=== PATIENT | female | born 1975 | race African-American/Black ===

== ENCOUNTER 2017-09-16 10:05 | Emergency (ER) | payer BC ==
[~2017-09-16] VITALS: Ht 162.6 cm; Wt 97.5 kg
[2017-09-16 10:10] VITALS: BP 162/94; Ht 162.6 cm; Wt 97.5 kg
== END 2017-09-16 11:47 | disposition home or self-care (01) ==
LOC: ED 10:05
DX: S16.1XXA Strain of muscle, fascia and tendon at neck level, initial encounter (principal); V43.92XA Unspecified car occupant injured in collision with other type car in traffic accident, initial encounter; Y93.89 Activity, other specified; Y92.89 Other specified places as the place of occurrence of the external cause; Y99.8 Other external cause status